=== PATIENT | female | born 1990 | race Caucasian/White ===

== ENCOUNTER 2020-10-15 16:11 | Emergency (ER) | payer OTHER ==
[2020-10-15] MEDS ORDERED: Ondansetron 4 MG/2 ML SDV IVPUSH ONE (16:29)
[2020-10-15] MEDS: Sodium Chloride 0.9% 1,000 ML IV ONE ×2 (16:43→18:20)
[2020-10-15] MEDS ORDERED: Ondansetron 4 MG/2 ML SDV ONE (16:54)
[2020-10-15] MEDS ORDERED: Metoclopramide 10 MG/2 ML SDV IV ONE (17:22)
[2020-10-15] MEDS ORDERED: Metoclopramide 10 MG/2 ML SDV ONE (17:33)
--- NOTE | 2020-10-15 18:17 | EDM.PDOC ---
ED HPI GENERAL MEDICAL PROBLEM - General Chief Complaint: General Stated Complaint: NAUSEA/VOMITING Time Seen by Provider: 10/15/20 17:00 Source of Information: Reports: Patient History Limitations: Reports: No Limitations - History of Present Illness INITIAL COMMENTS - FREE TEXT/NARRATIVE: Patient is a 30 y/o female who presents with nausea and vomiting after drinking white claw and fireballs all night and this morning. She states she has been throwing up everything and dry heaving. Patient denies . - Related Data Allergies Allergy/AdvReac Type Severity Reaction Status Date / Time No Known Allergies Allergy Verified 10/15/20 16:42 Past Medical History Cardiovascular History: Reports: Other (See Below) Other Cardiovascular History: Ablation 2019, PSVT etopic heart beats [employer] History: Reports: - Past Surgical History GI Surgical History: Reports: Appendectomy ED ROS GENERAL - Review of Systems Review Of Systems: See Below Constitutional: Reports: No Symptoms HEENT: Reports: No Symptoms Respiratory: Reports: No Symptoms Cardiovascular: Reports: No Symptoms Endocrine: Reports: No Symptoms GI/Abdominal: Reports: Nausea, Vomiting : Reports: No Symptoms Musculoskeletal: Reports: No Symptoms Skin: Reports: No Symptoms Neurological: Reports: No Symptoms Psychiatric: Reports: No Symptoms ED EXAM, GENERAL - Physical Exam Exam: See Below Exam Limited By: No Limitations General Appearance: Alert, No Apparent Distress Head: Atraumatic, Normocephalic Neck: Normal Inspection, Supple Respiratory/Chest: No Respiratory Distress, Lungs Clear, Normal Breath Sounds, No Accessory Muscle Use, Chest Non-Tender Cardiovascular: Normal Peripheral Pulses, Regular Rate, Rhythm, No Edema, No Murmur Peripheral Pulses: 2+: Radial (L), Radial (R) GI/Abdominal: Normal Bowel Sounds, Soft, Non-Tender, No Distention Neurological: Alert, Oriented, CN II-XII Intact, Normal Gait, No Motor/Sensory Deficits Psychiatric: Normal Affect, Normal Mood Skin Exam: Warm, Dry, Intact, Normal Color, No Rash Course - Vital Signs Text/Narrative:: Patient received zofran, reglan, and 2 L NS bolus. Leukocytosis, but otherwise labs are unremarkable. Leukocytosis can be elevated with extensive vomiting. Last Recorded V/S: Last Vital Signs Temp 36.8 C 10/15/20 17:44 Pulse 110 H 10/15/20 17:44 Resp 20 10/15/20 16:53 BP 113/73 10/15/20 17:47 Pulse Ox 98 10/15/20 16:53 - Orders/Labs/Meds Orders: Active Orders 24 hr Category Date Time Status EKG Documentation Completion [RC] ASDIRECTED Care 10/15/20 16:31 Active Labs: Laboratory Tests 10/15/20 10/15/20 Range/Units 16:41 16:41 WBC 15.2 H (4.0-11.0) K/uL RBC 4.41 (3.80-5.80) M/uL Hgb 13.4 (11.5-16.5) g/dL Hct 39.5 (37.0-47.0) % MCV 90 (76-96) fL MCH 30.4 (27.0-32.0) pg MCHC 33.9 (31.0-35.0) g/dL RDW 12.5 (11.0-16.0) % Plt Count 274 (150-500) K/uL MPV 9.9 (6.0-10.0) fL Neut % (Auto) 83.7 H (45.0-70.0) % Lymph % (Auto) 12.0 L (20.0-40.0) % [place] % (Auto) 3.7 (3.0-10.0) % Eos % (Auto) 0.3 L (1.0-5.0) % Baso % (Auto) 0.3 (0.0-0.5) % Neut # (Auto) 12.73 H (2.00-7.50) K/uL Lymph # (Auto) 1.83 (1.50-4.00) K/uL [place] # (Auto) 0.56 (0.20-0.80) K/uL Eos # (Auto) 0.05 (0.04-0.40) K/uL Baso # (Auto) 0.05 (0.02-0.10) K/uL Sodium 143 (136-145) mmol/L Potassium 3.7 (3.5-5.1) mmol/L Chloride 106 (98-107) mmol/L Carbon Dioxide 26.8 (21.0-32.0) mmol/L Anion Gap 13.9 (5.0-15.0) mmol/L BUN 14 (8-26) mg/dL Creatinine 0.83 (0.55-1.02) mg/dL Est Cr Clr Drug Dosing TNP Estimated GFR (MDRD) > 60 (>60) MLS/MIN BUN/Creatinine Ratio 16.9 (6-25) Glucose 80 (74-100) mg/dL Calcium 8.8 (8.5-10.1) mg/dL Total Bilirubin 0.6 (0.0-1.0) mg/dL AST 20 (15-37) U/L ALT 24 (12-78) U/L Alkaline Phosphatase 62 (46-116) U/L Total Protein 7.6 (6.4-8.2) g/dL Albumin 4.2 (3.4-5.0) g/dL Globulin 3.4 (2.2-4.2) g/dL Albumin/Globulin Ratio 1.2 (0.8-2.0) Meds: Medications Discontinued Medications Generic Name Dose Route Start Last Admin Trade Name Freq PRN Reason Stop Dose Admin Sodium Chloride 1,000 mls @ 0 mls/hr 10/15/20 16:31 10/15/20 16:43 Normal Saline IV 10/15/20 16:32 999 mls/hr .BOLUS ONE Administration KVO Metoclopramide HCl 10 mg 10/15/20 17:22 10/15/20 17:25 Reglan IV 10/15/20 17:23 10 mg ONETIME ONE Administration Metoclopramide HCl Confirm 10/15/20 17:33 10/15/20 17:38 Reglan Administered 10/15/20 17:34 Not Given Dose 10 mg .ROUTE .STK-MED ONE Ondansetron HCl 4 mg 10/15/20 16:29 10/15/20 16:47 Zofran IVPUSH 10/15/20 16:30 4 mg ONETIME ONE Administration Ondansetron HCl Confirm 10/15/20 16:54 10/15/20 17:38 Zofran Administered 10/15/20 16:55 Not Given Dose 4 mg .ROUTE .STK-MED ONE Departure - Departure Time of Disposition: 18:00 Disposition: Home, Self-Care 01 Condition: Good Clinical Impression: Dehydration Alcohol intoxication Qualifiers: Complication of substance-induced condition: uncomplicated Qualified Code(s): F 10.920 - Alcohol use, unspecified with intoxication, uncomplicated - Discharge Information *PRESCRIPTION DRUG MONITORING PROGRAM REVIEWED*: Not Applicable *COPY OF PRESCRIPTION DRUG MONITORING REPORT IN PATIENT LEONORA: Not Applicable Instructions: Alcohol Intoxication, Dehydration, Adult, [id number] Referrals: PCP,None [Primary Care Provider] - Forms: ED Department Discharge Care Plan Goals: Stay hydrated and avoid any more alcohol. Sepsis Event Note (ED) - Evaluation Sepsis Screening Result: No Definite Risk - Focused Exam Vital Signs: Vital Signs Temp Pulse Resp BP Pulse Ox 10/15/20 17:47 113/73 10/15/20 17:44 36.8 C 110 H 10/15/20 16:53 36.7 C 110 H 20 135/90 98 - My Orders Last 24 Hours: My Active Orders 10/15/20 16:31 EKG Documentation Completion [RC] ASDIRECTED - Assessment/Plan Last 24 Hours: My Active Orders 10/15/20 16:31 EKG Documentation Completion [RC] ASDIRECTED
== END 2020-10-15 18:10 | disposition home or self-care (01) ==
LOC: LB.ED 16:11
DX: F10.120 Alcohol abuse with intoxication, uncomplicated (principal); E86.0 Dehydration
CPT/HCPCS: 36415; 80053; 85025; 93005; 96374; 96375; 99284-25; J2405; J2765; J7030